=== PATIENT | male | born 1985 | race Caucasian/White ===

== ENCOUNTER 2022-10-09 17:53 | Emergency (ER) | payer SELFPAY ==
[~2022-10-09] VITALS: Ht 177.8 cm; Wt 77.1 kg
--- NOTE | 2022-10-09 18:14 | NUR ---
Patient refused x-ray and left ER with steady gait. Dr Cordoba notified.
== END 2022-10-09 18:15 | disposition left against medical advice (07) ==
LOC: ER 17:57
DX: M54.50 Low back pain, unspecified (principal); W17.89XA Other fall from one level to another, initial encounter; Z91.81 History of falling; Y92.89 Other specified places as the place of occurrence of the external cause; Z85.6 Personal history of leukemia
CPT/HCPCS: A4663